=== PATIENT | male | born 1950 | race Caucasian/White ===

== ENCOUNTER 2019-05-20 14:38 | Emergency (ER) | payer MEDICARE ==
[~2019-05-20] VITALS: Ht 177.8 cm; Wt 83.9 kg
== END 2019-05-20 16:39 | disposition home or self-care (01) ==
LOC: ER 14:38
DX: S05.41XA Penetrating wound of orbit with or without foreign body, right eye, initial encounter (principal); Z88.8 Allergy status to other drugs, medicaments and biological substances; W22.8XXA Striking against or struck by other objects, initial encounter
CPT/HCPCS: 12013; 70486; 90471; 90714; 99283-25; A9270